=== PATIENT | female | born 1935 | race Caucasian/White ===

== ENCOUNTER 2017-11-13 15:48 | Emergency (ER) | payer OTHER ==
[2017-11-13 15:58] VITALS: RESP 16
--- NOTE | 2017-11-13 16:13 | EDPHY ---
H & P Stated Complaint: Tripped on dog;fell,struck R face, no LOC,lac above R eye;L wrist inj Time Seen by Provider: 11/13/17 15:58 HPI/ROS: CHIEF COMPLAINT: Left wrist injury, right forehead injury HISTORY OF PRESENT ILLNESS: 81-year-old female with no anticoagulant use arrives via private vehicle, not a trauma activation, complaining of right forehead laceration and head injury, left wrist pain, deformity after she was walking her dog, tripped over her dog. No loss of consciousness. No amnesia. This was a mechanical, non syncopal episode. She denies other peripheral musculoskeletal complaints. REVIEW OF SYSTEMS: A ten point review of systems was performed and is negative with the exception of the items mentioned in the HPI PAST MEDICAL/SURGICAL HISTORY: no anticoagulant use, no relevant medical/ surgical history SOCIAL HISTORY: denies alcohol use at time of incident PHYSICAL EXAM 1) GENERAL: Well-developed, well-nourished, alert and oriented. Appears to be in no acute distress. Answering questions appropriately. 2) HEAD: Normocephalic, right frontal hematoma, right lateral eyebrow 2.5 cm laceration. 3) HEENT: Pupils equal, round, reactive to light bilaterally. Negative Horners. Nasopharynx, oropharynx, clear. No deformity or angulation of nose. No septal hematoma. No rhinorrhea. No oral trauma. Ears bilaterally with normal tympanic membranes. No hemotympanum. No fluid or blood in the external auditory canal. No raccoon eyes. No Correa sign. Teeth are normally aligned with no gross malocclusion, TMJ bilaterally nontender, facial bones nontender including the zygomatic arch, maxilla mandible. 4) NECK: No cervical collar is on. Posterior cervical spine is nontender, no stepoff, no effusion. Full range of motion which does not elicit any midline cervical spine pain, no posterior midline tenderness, no step-off.] 5) LUNGS: Clear to auscultation bilaterally, no wheezes, no rhonchi, no retractions. No obvious signs of trauma. No chest wall pain. No flaring, no grunting. Moving symmetrically. No crepitus. 6) HEART: [Regular rate and rhythm, 7) ABDOMEN: No guarding, no rebound, no focal tenderness, no peritoneal signs, no signs of trauma, no ecchymosis 8) MUSCULOSKELETAL: Left upper extremity: Dorsal deformity of the left wrist. Moving all extremities, no focal areas of tenderness, no obvious trauma. 9) BACK: No midline vertebral tenderness, no fluctuance, no step-off, no obvious trauma, no visual or palpable abnormality. 10) SKIN: No laceration. No abrasion DIFFERENTIAL DIAGNOSIS: Not necessarily in any particular order, my differential diagnosis includes, but is not limited to, concussion, skull fracture, intraparenchymal contusion, subarachnoid, subdural and epidural hematoma. The patient understands that this diagnosis is provisional and can never be 100% accurate. - Personal History Current Tetanus Diphtheria and Acellular Pertussis (TDAP): Unsure - Medical/Surgical History Other PMH: thyroid. cholesterol - Social History Smoking Status: Never smoked Constitutional: Initial Vital Signs Temperature (C) 36.8 C 11/13/17 15:55 Heart Rate 83 11/13/17 15:55 Respiratory Rate 16 11/13/17 15:55 Blood Pressure 191/103 H 11/13/17 15:55 O2 Sat (%) 92 11/13/17 15:55 O2 Delivery Mode Room Air Allergies/Adverse Reactions: No Known Allergies Allergy (Verified 11/13/17 15:52) Home Medications: Medication Instructions Recorded Levothyroxine Sodium [Synthroid] 25 mcg PO 03/27/11 SIMVASTATIN 03/27/11 Zolpidem Tartrate [Ambien] 03/27/11 Medical Decision Making - Diagnostics Imaging Results: Imaging Impressions Head CT 11/13/17 16:06 Impression: 1. No acute intracranial findings. 2. Diffuse cerebral atrophy with periventricular and subcortical low attenuation consistent with chronic microvascular ischemic gliosis. 3. Additional findings as above. Findings discussed with Dejuan Whalen PA-C on November 13, 2017 at 1642 hours. Wrist X-Ray 11/13/17 16:06 Impression: 1. Impacted comminuted intra-articular distal left radius fracture with dorsal angulation. 2. No definite distal ulnar fracture. 3. Carpal osteoarthritis with suboptimal positioning, but no definite fracture. Consider follow-up imaging of the carpal bones when the patient's medical condition permits. Images reviewed myself Procedures: Procedure: Laceration repair with tissue adhesive Verbal consent was obtained from the patient. The 2.5 cm laceration on the right lateral eyebrow. The wound was scrubbed and explored to its base with a gloved finger. No foreign body seen, no foreign bodies palpated. There were no deep structures involved. The wound was repaired with tissue adhesive. The procedure was performed by myself. Patient has been informed that scarring will occur, although every effort has been made to minimize this. Procedure: Splint A sugar-tong Orthoglass splint was applied by ER cooking appliance repair technician. After application of the splint I returned and re-examined the patient. The splint was adequately immobilizing the joint and distal to the splint the patient's circulation and sensation were intact. Patient shows no signs of compartment syndrome. Was given orthopedic precautions. ED Course/Re-evaluation: 4:[address] ordered in this patient for trauma for the following indication : Greater than 65 years old. 4:47 p.m.: Patient was re-evaluated with serial examinations, Care of patient under supervision of primary supervising physician Dr Hector with whom I discusssed case. Patient is answering questions appropriately. Discussed her negative head CT, discussed her x-ray of the left wrist. She has been splinted , she will need follow-up with orthopedics at [place]. Given copies of her x- rays, given usual and customary head injury and orthopedic precautions instructions. She feels comfortable being discharged.. Departure - Departure Disposition: Home, Routine, Self-Care Clinical Impression: Other contact with dog, initial encounter Head injury due to trauma Qualifiers: Encounter type: initial encounter Qualified Code(s): S09.90XA - Unspecified injury of head, initial encounter Distal radius fracture, left Qualifiers: Encounter type: initial encounter Fracture type: closed Fracture morphology: Colles' Qualified Code(s): S52.532A - Colles' fracture of left radius, initial encounter for closed fracture Laceration of forehead Qualifiers: Encounter type: initial encounter Qualified Code(s): S01.81XA - Laceration without foreign body of other part of head, initial encounter Condition: Good Instructions: Wrist Fracture in Adults (ED), Head Injury (ED) Additional Instructions: PLEASE RETURN TO THE EMERGENCY DEPARTMENT (ED) IMMEDIATELY IF YOU HAVE INCREASED HEADACHE, PERSISTENT HEADACHE, VOMITING, WEAKNESS, CONFUSION OR VISUAL PROBLEMS. WE RECOMMEND THAT YOU DO NOT RESUME CONTACT SPORTS OR ACTIVITIES THAT TAKE COORDINATION OR BALANCE SUCH SKIING OR RIDING A BICYCLE UNTIL CLEARED TO DO SO BY YOUR DOCTOR OR BY A NEUROLOGIST. You need to follow up with a [place] orthopedic surgeon. Referrals: ANA SULLIVAN [Primary Care Provider] - 1-2 days without fail
[2017-11-13] MEDS ORDERED: SKIN ADHESIVE (DERMABOND) 1 EACH TP ONE (16:31)
[2017-11-13 17:13] VITALS: BP 155/45; PULSE 74; TEMP 98.4; O2SAT 98
== END 2017-11-13 17:12 | disposition home or self-care (01) ==
PROC: 0HQ1XZZ Repair Face Skin, External Approach (ICD-10-PCS; principal; 2017-11-13)
DX: S52.532A Colles' fracture of left radius, initial encounter for closed fracture (principal); S09.90XA Unspecified injury of head, initial encounter; S01.81XA Laceration without foreign body of other part of head, initial encounter; W54.1XXA Struck by dog, initial encounter; Y93.01 Activity, walking, marching and hiking